=== PATIENT | female | born 1975 | race Caucasian/White ===

== ENCOUNTER 2021-12-19 09:35 | Emergency (ER) | payer BC ==
[~2021-12-19] VITALS: Ht 157.5 cm; Wt 101.3 kg
[2021-12-19 09:45] VITALS: BP 136/101
[2021-12-19] MEDS ORDERED: ZYRTEC10 MG PO (10:00)
[2021-12-19 10:01] VITALS: BP 129/91
[2021-12-19] MEDS ORDERED: AMLODIPINE XX (10:01)
[2021-12-19] MEDS ORDERED: FLUOXETINE10 M2 PO (10:01)
[2021-12-19] MEDS ORDERED: AMOX/K CLAV875 M1 PO (10:04)
[2021-12-19] MEDS ORDERED: DIFLUCAN100 M1 PO (10:04)
[2021-12-19] MEDS ORDERED: ATIVAN0.5 MG PO (10:04)
[2021-12-19 10:39] VITALS: BP 136/101
== END 2021-12-19 10:50 | disposition home or self-care (01) | DRG 605 ==
LOC: ED 09:35
DX: S41.151A Open bite of right upper arm, initial encounter (principal); I10 Essential (primary) hypertension; F32.A Depression, unspecified; W55.01XA Bitten by cat, initial encounter; Y92.009 Unspecified place in unspecified non-institutional (private) residence as the place of occurrence of the external cause

== ENCOUNTER 2021-12-22 07:19 | Emergency (ER) | payer BC ==
[~2021-12-22] VITALS: Ht 157.5 cm; Wt 101.0 kg
[~2021-12-22 07:19] MED LIST: AMLODIPINE XX; AMOX/K CLAV875 M1 PO; ATIVAN0.5 MG PO; DIFLUCAN100 M1 PO; FLUOXETINE10 M2 PO; ZYRTEC10 MG PO
[2021-12-22 07:27] VITALS: BP 131/105
[2021-12-22 07:30] VITALS: BP 124/93
[2021-12-22 08:03] VITALS: BP 131/105
== END 2021-12-22 08:03 | disposition home or self-care (01) | DRG 951 ==
LOC: ED 07:19
PROC: 3E0234Z Introduction of Serum, Toxoid and Vaccine into Muscle, Percutaneous Approach (ICD-10-PCS; principal; 2021-12-22)
DX: Z23 Encounter for immunization (principal); S61.451D Open bite of right hand, subsequent encounter; W55.01XD Bitten by cat, subsequent encounter; I10 Essential (primary) hypertension; F32.A Depression, unspecified

== ENCOUNTER 2021-12-26 07:18 | Emergency (ER) | payer BC ==
[~2021-12-26] VITALS: Ht 157.5 cm; Wt 104.5 kg
[2021-12-26 07:29] VITALS: BP 130/94
== END 2021-12-26 08:00 | disposition home or self-care (01) | DRG 951 ==
LOC: ED 07:18
PROC: 3E0234Z Introduction of Serum, Toxoid and Vaccine into Muscle, Percutaneous Approach (ICD-10-PCS; principal; 2021-12-26)
DX: Z23 Encounter for immunization (principal); S61.451D Open bite of right hand, subsequent encounter; W55.01XD Bitten by cat, subsequent encounter; I10 Essential (primary) hypertension; F32.A Depression, unspecified

== ENCOUNTER 2022-01-02 13:34 | Emergency (ER) | payer BC ==
[~2022-01-02] VITALS: Ht 157.5 cm; Wt 103.6 kg
[2022-01-02] MEDS ORDERED: MEDDOSEPAK PO (15:00)
[2022-01-02] MEDS ORDERED: VIBRAMYCIN100 M2 PO (15:00)
[2022-01-02 15:11] VITALS: BP 135/76
== END 2022-01-02 15:11 | disposition home or self-care (01) | DRG 951 ==
LOC: ED 13:34
PROC: 3E0234Z Introduction of Serum, Toxoid and Vaccine into Muscle, Percutaneous Approach (ICD-10-PCS; principal; 2022-01-02)
DX: Z23 Encounter for immunization (principal); S61.256D Open bite of right little finger without damage to nail, subsequent encounter; W55.01XD Bitten by cat, subsequent encounter; I10 Essential (primary) hypertension; F32.A Depression, unspecified

== ENCOUNTER 2024-03-16 11:20 | Emergency (ER) | payer SELFPAY ==
[~2024-03-16] VITALS: Ht 157.5 cm; Wt 102.5 kg
[~2024-03-16 11:20] MED LIST changes: +MEDDOSEPAK PO; +VIBRAMYCIN100 M2 PO
[2024-03-16 11:33] VITALS: BP 154/90
[2024-03-16] MEDS ORDERED: SODIUM CHLORIDE 0.9% 1,000 ML IV ONE (12:50)
[2024-03-16 12:58] LABS: ALBUMIN 4.5 g/dL (3.2-5.0); ALKALINE PHOSPHATASE 80 u/l (38-126); ANION GAP 10 (6-22 (CALC)); BILIRUBIN, TOTAL 1.2 mg/dL (0.02-1.3); BUN 14 mg/dL (7-17); BUN/CREATININE RATIO 17 (12-20 (CALC)); CARBON DIOXIDE 24 mmol/l (22-30); CHLORIDE 107 mmol/l (95-108); CREATININE 0.8 mg/dL (0.5-1.0); ESTIMATED GFR 89 ML/MIN (>=90 (CALC)); MAGNESIUM 2.3 mg/dL (1.6-2.3); POTASSIUM 4.2 mmol/l (3.5-5.1); SGOT/AST 33 u/l (14-36); SODIUM 137 mmol/l (137-146); TOTAL PROTEIN 7.9 g/dL (6.3-8.2)
[2024-03-16 13:00] VITALS: BP 137/87
[2024-03-16 13:02] LABS: BASO% 0.7 % (0-3); EOS% 4.3 % (0-8); HEMATOCRIT 45.9 % (37.0-47.0); HEMOGLOBIN 15.9 g/dl (12.0-16.0); IMMATURE GRANULOCYTES 0.1 % (0.0-5.0); LYMPH% 31.5 % (15-41); MEAN CELL VOLUME 88.4 fL CALC (80.0-100.0); MEAN CORPUSCULAR HGB 30.6 pG CALC (26.0-32.0); MEAN CORPUSCULAR HGB CONC 34.6 g/dL CAL (32.0-36.0); MONO% 8.1 % (2-13); NEUT# 4.09 thou/uL (2.00-7.15); NEUT% 55.3 % (42-76); RED BLOOD COUNT 5.19 mill/uL (4.20-5.60); RED CELL DISTRI WIDTH 12.7 % (11.5-15.5)
[2024-03-16 13:10] LABS: URINE BILIRUBIN - DIPSTICK Negative (NEGATIVE); URINE BLOOD DIPSTICK Small (NEGATIVE); URINE GLUCOSE - DIPSTICK Negative (NEGATIVE); URINE KETONE Negative (NEGATIVE); URINE LEUK ESTERASE Negative (NEGATIVE); URINE NITRITE - DIPSTICK Negative (Negative); URINE PH 5.5 (4.5-8.0); URINE PROTEIN - DIPSTICK Negative (NEG-TRACE); URINE SPECIFIC GRAVITY <=1.005; URINE UROBILINOGEN - DIPSTICK 0.2 E.U./dL (0.2)
[2024-03-16 13:21] LABS: URINE COLOR Yellow
[2024-03-16 13:29] LABS: URINE RBC 0-2 RBC/hpf (0-5)
[2024-03-16 13:31] VITALS: BP 134/83
[2024-03-16 14:00] VITALS: BP 147/72
[2024-03-16 14:26] VITALS: BP 147/72
== END 2024-03-16 14:28 | disposition home or self-care (01) | DRG 310 ==
LOC: ED 11:20
PROVIDERS: Nurse Practitioner
DX: R00.2 Palpitations (principal); I10 Essential (primary) hypertension; F32.A Depression, unspecified